=== PATIENT | male | born 1980 | race Caucasian/White ===

== ENCOUNTER 2019-03-01 09:56 | Outpatient (CLI) | payer BC, SELFPAY ==
[2019-03-01 11:08] LABS: ALT 21 U/L (12-78); AST 10 U/L (15-37); Albumin 3.7 g/dL (3.4-5.0); Alkaline Phosphatase 129 U/L (46-116); Anion Gap 8.7 mmol/L (3-11); BUN 17 mg/dL (7-18); Bilirubin, Total 0.3 mg/dL (0.2-1.0); CO2 29.3 mmol/L (21.0-32.0); CREATININE 1.03 mg/dL (0.70-1.30); Calcium 8.6 mg/dL (8.5-10.1); Calculated LDL 150 mg/dL; Chloride 105 mmol/L (98-107); Cholesterol 201 mg/dL (50-200); Glucose 95 mg/dL (70-100); HDL Cholesterol 33 mg/dL (40-60); Potassium 4.2 mmol/L (3.5-5.1); Sodium 143 mmol/L (136-145); Triglyceride 90 mg/dL (30-150)
== END 2019-03-01 10:16 ==
PROVIDERS: PCP Nurse Practitioner; Visit Provider Nurse Practitioner
DX: E66.9 Obesity, unspecified (principal); I10 Essential (primary) hypertension
CPT/HCPCS: 36415; 80053; 80061; 83721

== ENCOUNTER 2019-03-13 15:46 | Outpatient (CLI) | payer BC, SELFPAY ==
[2019-03-15 11:00] LABS: HBs Antibody, Quant 3.8 mIU/mL; Hepatitis B Surface Ab Negative
== END 2019-03-13 16:06 ==
PROVIDERS: PCP Nurse Practitioner; Visit Provider Nurse Practitioner
DX: Z01.84 Encounter for antibody response examination (principal)
CPT/HCPCS: 36415; 86706

== ENCOUNTER 2019-03-16 08:38 | Outpatient (CLI) | payer BC, SELFPAY ==
--- NOTE | 2019-03-16 08:55 | DI.RAD_ITS ---
SYMPTOM/DIAGNOSIS: POSITIVE PPD, R76.11. REACTION TO TB SKIN TEST W/O ACTIVE TB PA AND LATERAL CHEST: The heart is normal in size. The lungs are clear. The mediastinal structures and pleura appear intact. CONCLUSION: Normal chest.
== END 2019-03-16 08:58 ==
PROVIDERS: PCP Nurse Practitioner; Visit Provider Internal Medicine
DX: R76.11 Nonspecific reaction to tuberculin skin test without active tuberculosis (principal)
CPT/HCPCS: 71046

== ENCOUNTER 2019-04-27 14:40 | Outpatient (CLI) | payer BC, SELFPAY ==
[2019-04-27 15:22] LABS: HCT 40.9 % (40.0-50.0); HGB 13.9 g/dL (13.5-17.5); Mean Corpuscular Hemoglobin 29.2 pg (27.0-33.0); Mean Corpuscular Volume 85.9 fL (80-95); Mean Platelet Volume 11.1 fL (8.0-11.0); Platelet Count 239 x1000/uL (130-400); RBC 4.76 m/cumm (4.50-6.00); RBC Distribution Width 12.2 % (11.8-14.1); White Blood Cell Count 6.99 k/cumm (4.4-10.8)
[2019-04-27 16:01] LABS: ALT 36 U/L (16-63); AST 57 U/L (15-37); Albumin 3.6 g/dL (3.4-5.0); Alkaline Phosphatase 100 U/L (46-116); Bilirubin, Direct 0.11 mg/dL (0.00-0.20); Bilirubin, Total 0.4 mg/dL (0.2-1.0); Total Protein 6.6 g/dL (6.4-8.2)
== END 2019-04-27 15:00 ==
PROVIDERS: PCP Nurse Practitioner; Visit Provider Nurse Practitioner
DX: R76.11 Nonspecific reaction to tuberculin skin test without active tuberculosis (principal)
CPT/HCPCS: 36415; 80076; 85027

== ENCOUNTER 2019-07-02 15:22 | Emergency (ER) | payer OTHER, SELFPAY ==
[2019-07-02 15:27] VITALS: BP 122/78; PULSE 66; RESP 16; TEMP 36.6; O2SAT 96
--- NOTE | 2019-07-02 15:28 | ED.GENADUL_ITS ---
Discharge Plan Disposition Patient Disposition: HOME Condition: Improving Discharge Details Chief Complaint: Orthopedic Clinical Impression: Contusion of hand Primary Care Provider: Mony Trevino ED Provider: Wai Hammonds Home Meds and New Rx's Prescriptions: Continued One-A-Day Men's Multivitamin 400-20-300 mcg tablet 1 tab PO DAILY RF: 0 rifampin 300 mg capsule 600 mg PO DAILY Qty: 60 RF: 3 Discharge Instructions Instructions: Contusion in Adults (ED) Additional Instructions: Follow-up with your primary care provider. Call in the morning to schedule an appointment. Return to the emergency department immediately if you develop any weakness, or for any other concerning symptoms at all. Discharge Data Discharge Date/Time-TO BE ENTERED AT DEPARTURE: 07/02/19 17:27 Medical Decision Making <AME Bauer - Last Filed: 07/03/19 09:31> Patient is a 39-year-old nijle-mryj-pcfvflbm male presenting today with chief complaint of bilateral upper extremity pain. Initially, you put endorsing wrist pain the pain seems to be more over the dorsum of the hand bilaterally. Reports that yesterday he was running while at work and tripped and fell forward falling onto outstretched bilateral hands. Suffered abrasion to the dorsal aspect of bilateral hands, right elbow and right knee. No pain in the right elbow right knee. Pain is more in the left than the right. States he has been having weakness and has had difficulty performing symptoms such as turning the noel as well as pulling at my socks. Denies any numbness or tingling. As for his head, no other injury the time of the incident. On exam, patient has superficial abrasions as described. He has full range of motion of all of his digits. Ligamentous exam is intact bilaterally. No palpable defect. No appreciable swelling. Patient seems to be using hands well. Will obtain x-ray to evaluate for any point abnormality left hand although based on exam I find this unlikely. <Wia Hammonds MD - Last Filed: 07/02/19 17:30> Patient CARE signed out at change of shift. X-ray did not reveal any abnormalities. Patient will be discharged home. HPI <AME Bauer - Last Filed: 07/03/19 09:31> General Mode of arrival: ambulatory . Date/Time Provider Initiated Documentation: 07/02/19 15:24 . Limitations to Documentation: no limitations . Information obtained by: patient and RN notes reviewed . History of Present Illness 39 year old M presents to the emergency department with the chief complaint of bilateral wrist pain after fall last night, described as moderate, with intensity rated at 4. Quality is described as aching, and is localized to the left and right. Patient reports no radiation. Patient started experiencing this day(s) (1) and it has been constant. Immobilization improves symptom(s), Movement worsens symptoms . Patient notes no other symptoms.. Patient did receive the following treatments prior to arrival, none Related Data Home Medications Medication Instructions Recorded Confirmed rckfiwyo-armpxpbq-gcpyu acid 400 1 tab PO DAILY tab 03/01/19 07/02/19 mcg-vit K 20 mcg-lycop 300 mcg tablet rifampin 300 mg capsule 600 mg PO DAILY #60 cap 03/30/19 07/02/19 Previous Rx's Medication Instructions Recorded rifampin 300 mg capsule 600 mg PO DAILY #60 cap 03/30/19 Allergies Allergy/AdvReac Type Severity Reaction Status Date / Time No Known Allergies Allergy Verified 07/02/19 15:40 Review of Systems <AME Bauer - Last Filed: 07/03/19 09:31> Constitutional Constitutional: Reports as per HPI, Denies chills, Denies fever(s), Denies headache(s) and Denies weakness ENT Ears, Nose, Mouth, and Throat: Denies headache(s) Cardiovascular Cardiovascular: Reports as per HPI Respiratory Respiratory: Reports as per HPI and Denies cough Musculoskeletal Musculoskeletal: Reports as per HPI and Denies tingling Integumentary/Breasts Skin/Breast: Reports as per HPI, Denies rash and Denies wounds Neurologic Neurologic: Reports as per HPI, Denies headache(s), Denies tingling, Denies paresthesias and Denies weakness PFSH <AME Bauer - Last Filed: 07/03/19 09:31> Medical History Fracture of hand (Acute) R hand Family History (Updated 03/01/19 @ 09:05 by Rhina Cordon RN) Mother Cancer pt unsure of type Maternal Grandfather Multiple sclerosis Maternal Grandmother Diabetes Social History Smoking/Tobacco Use Status: Never Alcohol Intake: current Alcohol Intake frequency: a few times a month Drug use: Never Substance use type: does not use Adopted: No Caregiver/Support person: No Foster care: No Household members: family Housing: house Number of Children: 2 Education Level: college 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, [employer] What type of physical activity do you participate in: walking Frequency: other Details: walks a lot at work Seatbelt use: sometimes Drive 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 w/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 Working smoke detector in home: Yes Fire extinguisher in home: Yes Carbon monox detector in home: Yes Firearms in home: No Do you feel safe at home: Yes Do you feel safe in your relationship?: Yes Exam <AME Bauer - Last Filed: 07/03/19 09:31> Const General: cooperative, healthy appearing, comfortable, no acute distress, well developed and well groomed Nutritional Appearance: average body habitus and well nourished Orientation: alert and awake Resp Effort & Inspection: normal respiratory effort, able to speak in complete sentences and no respiratory distress Cardio Rate: regular rate Rhythm: regular rhythm Skin Trauma: abrasion (multiple abrasions) Full body images: 1. 2. 3. 4. areas of abrasion Neuro General: alert and awake Cognition: normal cognition Speech: speech normal Gait: normal gait Motor: muscle tone normal throughout Sensory Exam: no sensory deficits noted Extrem General: abnormal to inspection (abrasions as described above), full ROM, normal capillary refill and no joint enlargement Right upper extremity: full ROM, normal capillary refill, no joint enlargement, elbow/forearm (abrasion) Details: normal ROM, abrasion and distal pulses intact; no tenderness, no swelling, no unusual warmth, no lacerations, no ecchymosis, no crepitus and no deformity, wrist Details: normal to inspection, normal ROM, normal vascular exam and radial pulse present; no tenderness (no snuffbox tenderness), no swelling, no unusual warmth, no crepitus and no deformity and hand Details: normal capillary refill, neuromotor exam normal, neurosensory exam normal, tendon exam normal Location: of all digits, tenderness Location: of the dorsal hand Location: proximally and of the ulnar aspect, vascular exam, normal ROM of fingers, no swelling and abrasion; no unusual warmth, no lacerations, no ecchymosis, no crepitus and no puncture wound; abnormal to inspection (abrasion), no cyanosis and no edema Left upper extremity: full ROM, normal capillary refill and no joint enlargement; abnormal to inspection (abrasion), no cyanosis and no edema Right lower extremity: abnormal to inspection (abrasion as drawn above) Psych Appearance: grossly normal and well kempt Mental Status: mental status grossly normal Speech and Movement: speech and movement normal Sign Out <AME Bauer - Last Filed: 07/03/19 09:31> Sign Out Data: Sign Out Comment: At the end of my shift, care was transitioned to Dr. Hammonds with imaging pending. Patient FOOSH yesterday pain in bilateral hands, left greater than right. If imaging is negative, would consider MARLEEN or bracing to help with discomfort and plan for DC home after reevaluation. Last updated by Colette Marks PA at 07/02/19 16:01
--- NOTE | 2019-07-02 15:40 | DI.RAD_ITS ---
EXAM: XR HAND LT COMPLETE INDICATION: dorsal pain after FOOSH. COMPARISON: No exams were available for comparison TECHNIQUE: 2D digital imaging was performed. FINDINGS: No fracture or dislocation is seen. IMPRESSION: Negative left hand.
[2019-07-02] MEDS: Ibuprofen 600 MG TAB PO (15:45)
[2019-07-02] MEDS: Acetaminophen 500 MG TAB 1000 MG PO (15:45)
--- NOTE | 2019-07-02 17:13 | DI.VRAD_ITS ---
PROCEDURE INFORMATION: Exam: XR Left Hand Exam date and time: 07/02/2019 3:54 PM Clinical history: 39 years old, male; Left hand pain after FOOSH TECHNIQUE: Imaging protocol: XR Left hand. Views: 3 or more views. COMPARISON: No relevant prior studies available. FINDINGS: Bones/joints: No acute fracture. No dislocation. No focal osseous lesion. Soft tissues: No soft tissue radiopaque foreign body. IMPRESSION: No acute fracture or dislocation. Dictated and Authenticated by: Claudio Retana MD. Ordering:GET Alvarenga MD
== END 2019-07-02 17:27 | disposition home or self-care (01) ==
PROVIDERS: Emergency Provider Emergency Medicine; PCP Nurse Practitioner
DX: S60.811A Abrasion of right wrist, initial encounter (principal); S60.812A Abrasion of left wrist, initial encounter; W01.0XXA Fall on same level from slipping, tripping and stumbling without subsequent striking against object, initial encounter; Y99.0 Civilian activity done for income or pay
CPT/HCPCS: 99283; 73130; 99282

== ENCOUNTER 2020-04-05 07:44 | Outpatient (CLI) | payer BC, SELFPAY ==
[2020-04-07 04:48] LABS: SARS-CoV-2 RNA Undetected (Undetected); SARS-CoV-2 Specimen Source Nasopharynx
== END 2020-04-05 08:04 ==
PROVIDERS: PCP Nurse Practitioner; Visit Provider Nurse Practitioner
DX: Z11.59 Encounter for screening for other viral diseases (principal)
CPT/HCPCS: U0003

== ENCOUNTER 2023-05-25 02:57 | Outpatient (CLI) | payer BC, SELFPAY ==
[2023-05-25 09:05] LABS: Abs Immature Grans 0.02 10^3/uL (0.0-0.06); Absolute Basophil Count 0.06 10^3/uL (0.0-0.2); Absolute Eosinophil Count 0.12 10^3/uL (0.0-0.7); Absolute Lymphocyte Count 1.56 10^3/uL (1.2-3.4); Absolute Monocyte Count 0.59 10^3/uL (0.1-0.8); Basophils % 0.8; Eosinophils % 1.6; HCT 44.1 % (40.0-50.0); HGB 14.9 g/dL (13.5-17.5); Immature Grans % 0.3; Lymphocytes % 20.7; MCH 28.9 pg (27.0-33.0); MCHC 33.8 % (32.0-36.0); MCV 86 fL (80-95); MPV 10.8 fL (8.0-11.0); Monocytes % 7.8; Neutrophils % 68.8; Platelet Count 250 10^3/uL (130-400); RBC 5.15 10^6/uL (4.36-5.78); RDW 11.8 % (11.8-14.1); WBC 7.55 10^3/uL (4.4-10.8)
[2023-05-25 09:45] LABS: ALT 42 U/L (16-63); AST 20 U/L (15-37); Albumin 3.7 g/dL (3.4-5.0); Alkaline Phosphatase 106 U/L (46-116); Anion Gap 6.1 mmol/L (3-11); BUN 9 mg/dL (7-18); Bilirubin, Total 0.5 mg/dL (0.2-1.0); CO2 29.9 mmol/L (21.0-32.0); CREATININE 1.1 mg/dL (0.70-1.30); Calcium 8.8 mg/dL (8.5-10.1); Calculated LDL 167 mg/dL (<100); Chloride 103 mmol/L (98-107); Cholesterol 228 mg/dL (<200); Estimated GFR 85.42 (mL/min/1.73m2); Glucose 103 mg/dL (74-106); HDL Cholesterol 38 mg/dL (40-60); Potassium 4.2 mmol/L (3.5-5.1); Sodium 139 mmol/L (136-145); TSH (W/Ref FT4) 0.97 uIU/mL (0.36-3.74); Total Protein 7.4 g/dL (6.4-8.2); Triglyceride 119 mg/dL (<150)
[2023-05-25 10:04] LABS: Hemoglobin A1C 5.6 % (<5.7)
[2023-05-26 10:39] LABS: Hepatitis C Ab w Rflx HCV PCR Negative (Negative)
[2023-05-26 10:51] LABS: HIV-1/2 Ag & Ab Screen Negative (Negative)
== END 2023-05-25 02:58 | disposition home or self-care (01) ==
LOC: LBO 02:57
PROVIDERS: PCP Nurse Practitioner; Referring Provider Nurse Practitioner; Visit Provider Nurse Practitioner
DX: E66.9 Obesity, unspecified (principal); Z13.220 Encounter for screening for lipoid disorders; Z13.1 Encounter for screening for diabetes mellitus; Z11.4 Encounter for screening for human immunodeficiency virus [HIV]; Z11.59 Encounter for screening for other viral diseases; R76.11 Nonspecific reaction to tuberculin skin test without active tuberculosis
CPT/HCPCS: 36415; 80053; 80061; 86803; 87389; 83036; 84443; 85025

== ENCOUNTER 2024-01-06 22:57 | Emergency (ER) | payer BC, SELFPAY ==
[2024-01-06 22:59] VITALS: BP 152/86; PULSE 81; RESP 16; TEMP 36.6; O2SAT 95
--- NOTE | 2024-01-06 23:00 | DI.RAD_ITS ---
Exam(s) XR HAND LT COMPLETE EXAM: XR HAND LT COMPLETE CLINICAL HISTORY: pain at 4th MCP joint. TECHNIQUE: 2D digital imaging was performed. Three views. COMPARISON: CR,XR XR HAND LT COMPLETE from 07/02/2019 FINDINGS: BONES: Nondisplaced, oblique fracture through the proximal 4th metacarpal. Fracture does not extend to the articular surface. No additional fractures. No bony destructive lesion is seen. JOINTS: No dislocation present. SOFT TISSUE: Normal. IMPRESSION: Nondisplaced fracture of 4th metacarpal. DATA REPOSITORY: RADIATION DOSE DELIVERED:
--- NOTE | 2024-01-06 23:07 | ED.GENADUL_ITS ---
Discharge Plan Disposition Patient Disposition: Home Condition: Good Discharge Details Clinical Impression: Fracture of fourth metacarpal bone of left hand, Heart murmur Primary Care Provider: Mony Trevino ED Provider: Guzman Hernandez Home Meds and New Rx's Prescriptions: No Action One-A-Day Men's Multivitamin 400-20-300 mcg tablet 1 tab PO DAILY omega-3 fatty acids [Fish Oil Concentrate] 1,000 mg capsule 1,000 mg PO DAILY magnesium 250 mg tablet 250 mg PO DAILY cholecalciferol (vitamin D3) 25 mcg (1,000 unit) capsule 25 mcg PO DAILY Discharge Instructions Instructions: Hand Fracture (ED) Additional Instructions: At this time you do have a small nondisplaced fracture in your fourth metacarpal on your left hand. Please wear the splint for the next 4 weeks. Please take Tylenol and Motrin as needed for pain. Please follow-up closely with your primary care provider for reassessment and clearance. If you do not have improvement over the next 4 weeks with the conservative therapy you may require evaluation by an adapted physical education specialist. Additionally as we discussed together, a mild murmur was noted on exam. Please follow-up with your primary care provider for reassessment and potential further nonemergent outpatient diagnostic evaluation of this. If you notice any worsening of your symptoms, or any new symptoms such as vomiting, diarrhea, fever, chills, shortness of breath, chest pain, numbness, weakness, or fainting , please return immediately to the emergency department for reevaluation. Please follow up with your primary care provider as soon as possible for reassessment and reevaluation. As always, it was a pleasure participating in your medical care today. Stand Alone Forms: Work Release Referrals: Mony Trevino, CHELO [Primary Care Provider] - Discharge Data Discharge Date/Time-TO BE ENTERED AT DEPARTURE: 01/06/24 23:46 HPI General Date/Time Provider Initiated Documentation: 01/06/24 22:58 . HPI Narrative: This is a pleasant orzbp-oczh-yljofmxn male with a past medical history of obstructive sleep apnea, who presents today for left hand pain. 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 Thankfully there was no massive damage to the skin because he had gloves on but he did develop immediate pain around the MCP joint of the fourth digit. Pain is made worse with movement. It occurred about 40 minutes prior to arrival. He is able to move his hands and fingers well otherwise. He denies any numbness or tingling. He does admit to tenderness throughout the hand though. He denies any other complaints at this time. No other modifying factors. Related Data Home Medications Medication Instructions Recorded Confirmed rdotupcr-unfxnsqs-qzenf acid 400 1 tab PO DAILY 03/01/19 01/06/24 mcg-vit K 20 mcg-lycop 300 mcg tablet (One-A-Day Men's Multivitamin) cholecalciferol (vitamin D3) 25 25 mcg PO DAILY 06/06/21 01/06/24 mcg (1,000 unit) capsule magnesium 250 mg tablet 250 mg PO DAILY 06/06/21 01/06/24 omega-3 fatty acids 1,000 mg 1,000 mg PO DAILY 06/06/21 01/06/24 capsule (Fish Oil Concentrate) Allergies Allergy/AdvReac Type Severity Reaction Status Date / Time No Known Allergies Allergy Verified 01/06/24 23:03 General Stated Complaint: Orthopedic OLIVER: 4 Review of Systems All systems reviewed & are unremarkable except as noted in HPI and below Exam Narrative Exam Narrative: 1.Const: Well-nourished, Well-developed, appearing stated age 2.Eyes: PERRL, no conjunctival injection, and symmetrical lids. 3.ENT: Atraumatic external nose and ears. Moist MM. Neck: Symmetric, trachea midline, No thyromegaly. 4.CVS: +S1/S2, mild cardiac murmur is noted at Erb's point. Peripheral pulses 2+ and equal in all extremities. Brisk capillary refill in all extremities. 5.RESP: Unlabored respiratory effort. Clear to auscultation bilaterally. No wheezes rales or rhonchi 6.GI: Soft, Nontender/Nondistended, No hepatosplenomegaly. No guarding or rebound. 7.MSK: Left hand demonstrates minimal swelling at the MCP joint of the fourth digit, pain with movement, and tenderness to palpation to that area. Minimal pain at the base of the proximal phalange E. Patient demonstrates excellent flexion and extension of the fourth digit, normal sensation and brisk capillary refill. Mild skin abrasions are noted. The other fingers demonstrate normal movement for flexion and extension, thumb demonstrates normal movement for opposition and all movements in general. No rotational component or deformity with flexion of the fingers. 8.Skin: Warm, Dry. No rashes or lesions. 9.Neuro: requirements manager II-XII grossly intact. Sensation grossly intact, no focal neurologic deficits. 10.Psych: (AAO) x3. Appropriate mood and affect Course Vital Signs Vital signs: Vital Signs Temperature 36.6 C 01/06/24 22:59 Pulse 81 01/06/24 22:59 Respiratory Rate 16 01/06/24 22:59 Blood Pressure 152/86 H 01/06/24 22:59 Pulse Oximetry 95 01/06/24 22:59 Temperature 36.6 C 01/06/24 22:59 Pulse 81 01/06/24 22:59 Respiratory Rate 16 01/06/24 22:59 Respiratory Effort Normal 01/06/24 23:03 Blood Pressure 152/86 H 01/06/24 22:59 Pulse Oximetry 95 01/06/24 22:59 Pain Level 2 01/06/24 22:59 Medical Decision Making This is a pleasant uwmcq-epyc-hyacvmgl male with a past medical history of obstructive sleep apnea, who presents today for left hand pain. 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 Thankfully there was no massive damage to the skin because he had gloves on but he did develop immediate pain around the MCP joint of the fourth digit. Pain is made worse with movement. It occurred about 40 minutes prior to arrival. He is able to move his hands and fingers well otherwise. He denies any numbness or tingling. He does admit to tenderness throughout the hand though. He denies any other complaints at this time. No other modifying factors. Exam demonstrates swelling and tenderness over the MCP the fourth digit. No rotational deformity on flexion. Normal sensation, brisk capillary refill. Concern for osseous injury. Will get an x-ray, monitor closely and reassess. We did offer NSAID therapy and patient has declined. On an aside the patient's exam did demonstrate evidence of a cardiac murmur noted loudest at the left parasternal border border at Erb's point. Patient does not recall having a history of this. He denies family history of sudden , syncope, or other complaints. I have recommended that the patient follow-up closely with his primary care provider for further evaluation and potential nonemergent echo. 11:47 PM Patient shows evidence of a mild shaft fracture with minimal displacement of the fourth metacarpal on the left hand. Initial x-ray was read as negative by patel, however upon personal review fracture was identified. I did call radiology/virtual radiologist, and addendum was made to the original read. Splint was fitted well. He tolerated this well. 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 Recommend conservative therapy and close follow-up with his PCP, expect 4+ weeks for healing. Discussed red flags which to return. I have extensively reviewed the treatment plan and discharge instructions with the patient and their family. I have addressed all patient concerns at this time. The patient and family was made aware of what symptoms to monitor for that would warrant a return to the emergency department. Discussed the plan with the patient and family, they demonstrate verbal understanding and agreement with our assessment and plan at this time. The documentation in this chart was dictated using [employer] dictation software. Please excuse any dictation errors. Addendum created by Jalen Duran MD on 01/07/2024 12:34 AM Eastern Time ([place] & [place]): There is a subtle acute fracture of the mid diaphysis of the right 4th metacarpal, evident on the oblique image only. Case reviewed with Dr. Hernandez at time of interpretation. Initial Report created on 01/07/2024 12:29 AM Eastern Time ([place] & [place]): PROCEDURE INFORMATION: Exam: XR Left Hand Exam date and time: 01/06/2024 11:15 PM Age: 43 years old Clinical indication: Pain; Hand; Left; Additional info: Pain at 4th mcp joint TECHNIQUE: Imaging protocol: Radiologic exam of the left hand. Views: 3 or more views. COMPARISON: CR XR HAND LT COMPLETE 07/02/2019 3:53 PM FINDINGS: Bones/joints: Normal. Soft tissues: Normal. IMPRESSION: No acute findings. Thank you for allowing us to participate in the care of your patient Quality:SDOH Health Related Social Needs: No Data to Display PFSH All Active Problems (Updated 01/06/24 @ 23:42 by Guzman Hernandez, ) Heart murmur (Acute) Fracture of fourth metacarpal bone of left hand (Acute) BERNIE (obstructive sleep apnea) (Chronic ~08/2023) Home Study Positive for BENRIE, CPAP recommended. Encounter for screening laboratory testing for COVID-19 virus (Acute) Positive PPD (Acute) Medical History Fracture of hand R hand Family History Mother Cancer pt unsure of type Maternal Grandfather Multiple sclerosis Maternal Grandmother Diabetes Social History Smoking/Tobacco Use Status: Never Second Hand Exposure: No Smoking risk assessment performed?: Yes Alcohol Intake: current Alcohol Intake frequency: a few times a month Drug use: Never Substance use type: does not use Adopted: No Caregiver/Support person: No Foster care: No Household members: spouse, children and other Details: younger brother Housing: house Number of Children: 2 Communication Needs: Corrective Lenses Education Level: college 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 Pets and animals: Yes Pets and animals: cat(s) and other Details: chickens Sexually active: Yes Do you think of yourself as: straight/heterosexual Current gender identity: male What is your relationship status?: How often do you talk on the phone with friends or family?: once per week How often do you get together with friends or relatives?: three or more times per week Do you belong to any clubs or organized social groups?: no Panel score (0-1 are the most socially isolated patients): 2 What type of physical activity do you participate in: walking and other Duration: 60-90 minutes/day Frequency: other Details: Work Special cecilia needs: No Seatbelt use: always Helmet use: Yes Helmet use: sometimes Drive 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
--- NOTE | 2024-01-07 00:30 | DI.VRAD_ITS ---
Addendum created by Jalen Duran MD on 01/07/2024 12:34:44 AM EDT: There is a subtle acute fracture of the mid diaphysis of the right 4th metacarpal, evident on the oblique image only. Case reviewed with Dr. Hernandez at time of interpretation. Initial report created on 01/07/2024 12:29:42 AM EDT: PROCEDURE INFORMATION: Exam: XR Left Hand Exam date and time: 01/06/2024 11:15 PM Age: 43 years old Clinical indication: Pain; Hand; Left; Additional info: Pain at 4th mcp joint TECHNIQUE: Imaging protocol: Radiologic exam of the left hand. Views: 3 or more views. COMPARISON: CR XR HAND LT COMPLETE 07/02/2019 3:53 PM FINDINGS: Bones/joints: Normal. Soft tissues: Normal. IMPRESSION: No acute findings. Dictated and Authenticated by: Jalen Duran MD. Ordering:CIARAN Hinds MD
== END 2024-01-06 23:46 | disposition home or self-care (01) ==
PROVIDERS: Emergency Provider Student in an Organized Health Care Education/Training Program; PCP Nurse Practitioner
DX: S62.325A Displaced fracture of shaft of fourth metacarpal bone, left hand, initial encounter for closed fracture (principal); M79.642 Pain in left hand; W23.1XXA Caught, crushed, jammed, or pinched between stationary objects, initial encounter
CPT/HCPCS: 26600; 29125; 99283; 73130

== ENCOUNTER 2024-03-30 14:43 | Outpatient (CLI) | payer BC, SELFPAY ==
--- NOTE | 2024-03-30 13:51 | DI.RAD_ITS ---
Exam(s) XR FINGER LT RING EXAM: XR FINGER LT RING CLINICAL HISTORY: eval LRF PIP swelling/stiffness. TECHNIQUE: 2D digital imaging was performed. Three views. COMPARISON: None. FINDINGS: BONES: Healing fracture of the 4th metacarpal. No change in alignment. No acute fracture is presen t. No bony destructive lesion is seen. JOINTS: No dislocation present. No joint space erosions. SOFT TISSUE: No foreign body or abnormal gas. IMPRESSION: Healing fracture of the 4th metacarpal. DATA REPOSITORY: RADIATION DOSE DELIVERED:
== END 2024-03-30 14:44 | disposition home or self-care (01) ==
LOC: DIORS 14:43
PROVIDERS: PCP Nurse Practitioner; Visit Provider Student in an Organized Health Care Education/Training Program
DX: S60.042A Contusion of left ring finger without damage to nail, initial encounter (principal); S62.305D Unspecified fracture of fourth metacarpal bone, left hand, subsequent encounter for fracture with routine healing
CPT/HCPCS: 73140

== ENCOUNTER 2024-05-29 14:27 | Outpatient (CLI) | payer BC, SELFPAY ==
--- NOTE | 2024-05-29 14:15 | RT.EKG_ITS ---
APPROVED REPORT Exam: Resting ECG Reason for Exam: abnormal echo Patient Location: O HR:61 bpm ECG Measurements Heart Rate 61 AXIS ME 181 P 39 QRSd 104 QRS 27 QT 398 T -7 QTc 401 Conclusion Sinus rhythm...normal P axis, V-rate 50- 99 Abnormal R-wave progression, early transition...QRS area>0 in V2 Inferior infarct, old...Q >35mS, II III aVF
== END 2024-05-29 14:28 | disposition home or self-care (01) ==
LOC: DI.KIM 14:29
PROVIDERS: PCP Nurse Practitioner; Visit Provider Nurse Practitioner
DX: R93.1 Abnormal findings on diagnostic imaging of heart and coronary circulation (principal)
CPT/HCPCS: 93010

== ENCOUNTER 2024-06-12 01:08 | Outpatient (CLI) | payer BC, SELFPAY ==
--- NOTE | 2024-06-12 13:02 | ETT_ITS ---
APPROVED REPORT Exam: Exercise Treadmill Patient Location: Out-Patient Room/Bed: Stress Nurse: Alena Goldberg RN; Claire Martínez RN Ordering Provider:MINA STEEN, Contact Number: [phone] BMI: 36.33 Baseline Rhythm: Sinus Rhythm Indications: abnormal EKG Medical History Medical History: BERNIE, PPD Cardiac Medications: magnesium Allergies: No known drug allergies Cardiac Risk Factors: obesity Previous Cardiac Procedures: none Pretest Chest Pain Characteristics: No chest pain Exercise History: Indeterminate Physical Disabilities: none Lung Sounds: Clear to auscultation Heart Sounds: Regular Stress Test Details Test: Exercise stress testing was performed using a Magdaleno protocol. Rest Stress HR Resting HR Supine: 88 bpm Max Heart Rate (APMHR): 176 bpm Resting HR Standin bpm Target HR (85% APMHR): 150 bpm Max HR Achieved: 150 bpm % of APMHR: 85 Recovery HR: 101 bpm HR response to stress: Normal HR response to stress BP Resting BP Supine: 138/90 mmHg Resting BP Standin/98 mmHg Max BP: 202/98 mmHg Recovery BP: 140/90 mmHg BP response to stress: Normal blood pressure response to stress. ECG Resting ECG: Sinus Rhythm Ectopy: none Stress ECG: Sinus Tachycardia ST Change: No significant ST segment changes noted Arrhythmia: None Recovery ECG: Sinus Rhythm Recovery ST Change: No significant ST segment changes noted Recovery Arrhythmia: None Clinical Reason for Termination: Target HR Achieved Stress Symptoms: mod. SOB Exercise duration: 07 min45 sec Highest Stage Reached: Stage 2: 2.5 mph at 12% grade. Exercise capacity: 9.77 METs Angina Score: None Robles Treadmill Score: 7.4 Rate Pressure Product: [id number] Stress ECG Conclusion 1. Resting electrocardiogram showed nondiagnostic inferolateral Q waves 2. Patient exercised on the Magdaleno protocol completed workload of 9.77 METS 3. Normal heart rate and blood pressure response to exercise. The patient achieved 85% of maximal pr edicted heart rate for age 4. There was no electrocardiographic evidence of myocardial ischemia 5. There were no significant dysrhythmias Robles Treadmill Score is 7.4 which is Low risk. Stress Test Summary STAGE Time (mins) Speed (mph) Grade (%) HR BP SpO2 SYMPTOMS METS Supine 88 138/90 98 Standing 78 138/98 1 3 1.7 10 122 178/94 97 4.5 2 6 2.5 12 136 202/98 7 3 9 3.4 14 150 10 1 min recovery 136 192/82 3 min recovery 108 198/96 98 6 min recovery 101 140/90
== END 2024-06-12 01:28 ==
LOC: DI 01:08
PROVIDERS: PCP Nurse Practitioner; Visit Provider Nurse Practitioner
DX: R94.31 Abnormal electrocardiogram [ECG] [EKG] (principal)
CPT/HCPCS: 93017

== ENCOUNTER 2025-06-15 04:13 | Outpatient (CLI) | payer BC, SELFPAY ==
[2025-06-15 14:01] LABS: Hemoglobin A1C 5.6 % (<5.7)
[2025-06-15 14:54] LABS: Anion Gap 6.6 mmol/L (3-11); BUN 11 mg/dL (7-18); CO2 31.4 mmol/L (21.0-32.0); Calcium 8.9 mg/dL (8.5-10.1); Calculated LDL 153 mg/dL (<100); Chloride 102 mmol/L (98-107); Cholesterol 210 mg/dL (<200); Estimated GFR 76.00 (mL/min/1.73m2); Glucose 91 mg/dL (74-106); HDL Cholesterol 38 mg/dL (>or=40); Potassium 4.2 mmol/L (3.5-5.1); Sodium 140 mmol/L (136-145); Triglyceride 95 mg/dL (<150)
== END 2025-06-15 04:14 | disposition home or self-care (01) ==
LOC: LBO 04:14
DX: E66.9 Obesity, unspecified (principal); E78.00 Pure hypercholesterolemia, unspecified
CPT/HCPCS: 36415; 80048; 80061; 83036